=== PATIENT | female | born 1950 | race Caucasian/White ===

== ENCOUNTER 2018-04-04 17:32 | Inpatient (IN) | payer BC, OTHER ==
[~2018-04-04] VITALS: Ht 170.2 cm; Wt 59.9 kg
[2018-04-04 19:10] LABS: Hematocrit 15.1 % (36.0-46.0); Mean Corpuscular Volume 101.4 fL (80.0-100.0); White Blood Cell 2.9 10^3/uL (4.4-10.8)
[2018-04-04 19:12] LABS: Mean Corpuscular Hemoglobin 34.5 pg (28.0-32.0); Red Blood Cells 1.48 10^6/uL (4.0-5.20)
[2018-04-04 19:15] LABS: Red Cell Distribution Width 28.3 % (11.8-14.3)
[2018-04-04 19:22] LABS: Hemoglobin 5.1 g/dL (12.2-16.2); Platelet Count (auto) 65 10^3/uL (140-450)
[2018-04-04 19:23] LABS: Band Neutrophils % (manual) 0; Basophils % (manual) 0 (0.0-2.0); Blast Cells 0; Metamyelocytes % 0; Myelocytes % 0; Promyelocytes % 0; Reactive Lymphocytes 0
[2018-04-04 19:34] LABS: Alanine Aminotransferase 18 U/L (13-56); Albumin 3.8 g/dL (3.4-5.0); Alkaline Phosphatase 63 U/L (45-117); Anion Gap 8 (5-15); Aspartate Aminotransferase 8 U/L (15-37); Bilirubin, Total 0.3 mg/dL (0.2-1.0); Blood Urea Nitrogen 21 mg/dL (7-18); Calcium 8.2 mg/dL (8.5-10.1); Carbon Dioxide 26 mmol/L (21-32); Chloride 109 mmol/L (98-107); GFR African American 99 mL/min; GFR Non-African American 82 mL/min; Glucose 97 mg/dL (74-106); Potassium 3.3 mmol/L (3.5-5.1); Sodium 143 mmol/L (136-145); Total Protein 6.7 g/dL (6.4-8.2)
[2018-04-04 19:54] LABS: Eosinophils % (manual) 1 (0-7); Lymphocytes % (manual) 55 (10.0-50.0); Monocytes % (manual) 10 (0-12)
[2018-04-04] MEDS ORDERED: NITROGLYCERIN 0.4 MG SL TAB SL PRN (20:45)
[2018-04-04] MEDS ORDERED: MORPHINE SULFATE 8mg/ml INJ SDV IV PRN (20:45)
[2018-04-04] MEDS ORDERED: ACETAMINOPHEN 325 MG TAB PO PRN (20:45)
[2018-04-04] MEDS ORDERED: TEMAZEPAM 15 MG CAP PO PRN (20:45)
[2018-04-04] MEDS ORDERED: ONDANSETRON HCL 4 MG/2 ML VIAL IV PRN (20:45)
[2018-04-04] MEDS ORDERED: POTASSIUM CHL 20 Meq TABLET PO ONE (21:00)
[2018-04-04] MEDS: SODIUM CHLORIDE 0.9% 1,000 ML IV SCH (21:33)
[2018-04-04 22:39] VITALS: BP 107/46
[2018-04-04 23:00] VITALS: BP 113/51
[2018-04-04 23:15] VITALS: BP 110/48
[2018-04-04 23:30] VITALS: BP 108/49
[2018-04-04] MEDS: FAMOTIDINE 20 MG TAB PO SCH (23:30)
[2018-04-04 23:45] VITALS: BP 125/54
[2018-04-05] VITALS (19 sets, daily range): BP systolic 105–140; BP diastolic 43–65
[2018-04-05 01:08] LABS: Hematocrit 17.2 % (36.0-46.0)
[2018-04-05 01:11] LABS: Hemoglobin 5.8 g/dL (12.2-16.2)
[2018-04-05] MEDS ORDERED: SIMV-8 PO (03:08)
[2018-04-05] MEDS ORDERED: HYDR25TA4 PO (03:08)
[2018-04-05] MEDS ORDERED: ASPI325T4 PO (03:08)
[2018-04-05] MEDS ORDERED: OMEP20TA PO (03:08)
[2018-04-05] MEDS ORDERED: CHOL50004 PO (03:08)
[2018-04-05] MEDS ORDERED: LORA-664 PO (03:08)
[2018-04-05 08:02] LABS: Hematocrit 34.8 % (36.0-46.0); Hemoglobin 10.9 g/dL (12.2-16.2); Mean Corpuscular Hemoglobin 30.8 pg (28.0-32.0); Mean Corpuscular Hgb Conc. 31.2 g/dL (32.0-36.0); Mean Corpuscular Volume 98.7 fL (80.0-100.0); Platelet Count (auto) 54 10^3/uL (140-450); Red Blood Cells 3.53 10^6/uL (4.0-5.20); White Blood Cell 3.6 10^3/uL (4.4-10.8)
[2018-04-05 08:20] LABS: Albumin 3.6 g/dL (3.4-5.0); BUN/Creatinine Ratio 26.1; Bilirubin, Total 1.3 mg/dL (0.2-1.0); Calcium 8.3 mg/dL (8.5-10.1); Potassium 4.7 mmol/L (3.5-5.1); Total Protein 6.9 g/dL (6.4-8.2)
[2018-04-05 09:15] LABS: Red Cell Distribution Width 22.5 % (11.8-14.3)
[2018-04-05 09:16] LABS: Band Neutrophils % (manual) 0; Basophils % (manual) 0 (0.0-2.0); Blast Cells 0; Metamyelocytes % 0; Myelocytes % 0; Promyelocytes % 0; Reactive Lymphocytes 0
[2018-04-05] MEDS: SODIUM CHLORIDE 0.9% 1,000 ML IV SCH (09:16)
[2018-04-05] MEDS: FAMOTIDINE 20 MG TAB PO SCH (09:16)
[2018-04-05 09:28] LABS: Eosinophils % (manual) 2 (0-7); Lymphocytes % (manual) 29 (10.0-50.0); Monocytes % (manual) 25 (0-12)
== END 2018-04-05 15:10 | disposition home or self-care (01) | DRG 812 ==
LOC: ER 17:32 → TELE 17:33 → TELE-WESTW 20:56
PROVIDERS: ADMIT Nurse Practitioner; ATTEND Internal Medicine
PROC: 30233N1 Transfusion of Nonautologous Red Blood Cells into Peripheral Vein, Percutaneous Approach (ICD-10-PCS; principal; 2018-04-04)
DX: D46.9 Myelodysplastic syndrome, unspecified (principal); E78.5 Hyperlipidemia, unspecified; E87.6 Hypokalemia; G47.00 Insomnia, unspecified; F17.210 Nicotine dependence, cigarettes, uncomplicated; I10 Essential (primary) hypertension; Z90.49 Acquired absence of other specified parts of digestive tract; Z88.6 Allergy status to analgesic agent; Z90.710 Acquired absence of both cervix and uterus
CPT/HCPCS: 36415; 36430; 71046; 80053; 83735; 83880; 84484; 85007; 85014; 85018; 85027; 86850; 86900; 86901; 86920; 93005; 94761; 96360; 96361; 99291